=== PATIENT | female | born 1950 | race Caucasian/White ===

== ENCOUNTER → 2024-04-25 18:41 | Outpatient (REF) | payer MEDICARE, SELFPAY | LOC: WDC 18:41 | PROVIDERS: ATTENDING PHYSICIAN Internal Medicine; FAMILY PHYSICIAN Internal Medicine | DX: Z12.31 Encounter for screening mammogram for malignant neoplasm of breast (principal) | CPT/HCPCS: 77063; 77067 ==

== ENCOUNTER → 2024-05-03 11:18 | Outpatient (REF) | payer MEDICARE, SELFPAY ==
[2024-05-03 12:45] LABS: % Basophils 0.8 % (0-2); % Immature Granulocytes 0.2 % (0-0.5); % Lymphocytes 23.2 % (20.5-51.1); % Monocytes 10.7 % (1.7-9.3); % Neutrophils 62.1 % (42.2-75.2); Absolute Eosinophils 0.2 10^3/uL (0-0.7); Absolute Lymphocytes 1.2 10^3/uL (1.2-3.4); Absolute Monocytes 0.6 10^3/uL (0.1-0.6); Absolute Neutrophils 3.3 10^3/uL (1.4-6.5); Hematocrit 38.1 % (37.0-47.0); Hemoglobin 12.9 g/dL (12.0-16.0); Mean Corp Hgb Conc. 33.9 g/dL (33.0-37.0); Mean Corpuscular Volume 97.4 fL (81.0-99.0); Mean Platelet Volume 10.2 fL (7.4-10.4); Nucleated Red Blood Cells % 0 %; Platelet Count 207 10^3/uL (130-400); Red Blood Cell Count 3.91 10^6/uL (4.20-5.40); Red Cell Dist. Width 13.2 % (11.5-14.5); White Blood Cell Count 5.3 10^3/uL (4.8-10.8)
[2024-05-03 13:33] LABS: ALT (SGPT) 27 U/L (0-35); AST (SGOT) 42 U/L (14-36); Albumin 4.5 g/dl (3.5-5.0); Alkaline Phosphatase 64 U/L (38-126); Blood Urea Nitrogen 28 mg/dl (7-17); Calcium 9.9 mg/dl (8.4-10.2); Carbon Dioxide 26 mmol/L (22-30); Chloride 104 mmol/L (98-107); Glucose 100 mg/dl (70-99); Potassium 4.8 mmol/L (3.5-5.1); Sodium 139 mmol/L (135-145); Total Bilirubin 0.8 mg/dl (0.2-1.3); Total Cholesterol 289 mg/dl (50-199); Total Protein 7.2 g/dl (6.3-8.2); Triglyceride 77 mg/dl (10-149); Very Low Density Lipoprotein 15 mg/dl (0-30); eGFR 43.69
[2024-05-03 14:20] LABS: HDL Cholesterol 127 mg/dl; LDL Cholesterol, Calculated 147 mg/dl
== END ==
LOC: REG 11:18
PROVIDERS: ATTENDING PHYSICIAN Internal Medicine; REFERRING PHYSICIAN Specialist
DX: Z00.00 Encounter for general adult medical examination without abnormal findings (principal); R53.83 Other fatigue; E78.5 Hyperlipidemia, unspecified; C64.1 Malignant neoplasm of right kidney, except renal pelvis
CPT/HCPCS: 36415; 74018; 80053; 80061; 84443; 85025

== ENCOUNTER 2024-08-09 17:15 | Emergency (ER) | payer MEDICARE, SELFPAY ==
[2024-08-09 17:17] VITALS: BP 118/85
--- NOTE | 2024-08-09 17:22 | ED.PDOC.TRB ---
ED Provider Triage
-
Patient seen by provider in Triage?: Seen in Triage
Attestation: A medical screening examination has been initiated by a qualified medical provider. Based on the assessment performed at this time, it has been determined that an emergent medical condition may exist and the patient has been informed
that further medical evaluation and possible additional diagnostic testing may be needed.
HPI: 74-year-old female presents for evaluation of persistent nausea, vomiting, and diarrhea for the past 5 days. Initial onset of symptoms was also accompanied by nasal congestion and dry cough. No fevers. Denies any abdominal pain. No
suspicious food intake or recent international travel. No ill contacts
GENERAL: Alert , in no apparent distress
EYE: No visual abnormalities.
NECK: Trachea midline
ENT: No visible abnormalities.
LUNGS: No acute respiratory distress
NEUROLOGICAL: Alert and oriented
SKIN: Skin intact. No visible changes.
MUSCULOSKELETAL: Moving extremities normally
PSYCH: Normal and appropriate interaction.
Assessment: Likely viral syndrome, will check COVID-19 and labs due to persistence of the vomiting. Patient denies nausea at this time. She has no pain to suggest there is a need for a CT
This is a medical evaluation conducted in person to initiate diagnostic evaluation and provide initial therapeutics. Please see further documentation by the treating clinician.
[2024-08-09 17:35] LABS: % Basophils 0.5 % (0-2); % Eosinophils 2.2 % (0-6); % Immature Granulocytes 0.5 % (0-0.5); % Lymphocytes 24.2 % (20.5-51.1); % Monocytes 12.5 % (1.7-9.3); % Neutrophils 60.1 % (42.2-75.2); Absolute Eosinophils 0.1 10^3/uL (0-0.7); Absolute Lymphocytes 1.4 10^3/uL (1.2-3.4); Absolute Monocytes 0.7 10^3/uL (0.1-0.6); Absolute Neutrophils 3.5 10^3/uL (1.4-6.5); Hematocrit 37.4 % (37.0-47.0); Hemoglobin 13.3 g/dL (12.0-16.0); Mean Corp Hgb Conc. 35.6 g/dL (33.0-37.0); Mean Corpuscular Hgb 33.3 pg (27.0-31.0); Mean Corpuscular Volume 93.7 fL (81.0-99.0); Mean Platelet Volume 9.6 fL (7.4-10.4); Nucleated Red Blood Cells % 0 %; Platelet Count 202 10^3/uL (130-400); Red Blood Cell Count 3.99 10^6/uL (4.20-5.40); Red Cell Dist. Width 12.5 % (11.5-14.5); White Blood Cell Count 5.9 10^3/uL (4.8-10.8)
[2024-08-09 17:45] LABS: ALT (SGPT) 116 U/L (0-35); AST (SGOT) 180 U/L (14-36); Albumin 4.6 g/dl (3.5-5.0); Alkaline Phosphatase 70 U/L (38-126); Blood Urea Nitrogen 49 mg/dl (7-17); Calcium 10.1 mg/dl (8.4-10.2); Carbon Dioxide 18 mmol/L (22-30); Chloride 98 mmol/L (98-107); Glucose 123 mg/dl (70-99); Potassium 4.8 mmol/L (3.5-5.1); Sodium 135 mmol/L (135-145); Total Bilirubin 0.9 mg/dl (0.2-1.3); Total Protein 7.2 g/dl (6.3-8.2); eGFR 29.57
[2024-08-09 17:46] LABS: Lipase 692 U/L (23-300)
[2024-08-09 18:12] LABS: COVID-19 Antigen Positive (Negative)
--- NOTE | 2024-08-09 18:17 | ED.GENMED ---
History of Present Illness
General
Chief Complaint: Abdominal Symptoms
Source: patient
Time Seen by Provider: 08/09/24 18:02
History of Present Illness
History of Present Illness:
74yoF with a history of hypertension, GERD, and renal cell carcinoma s/p R nephrectomy currently in remission presenting for evaluation of flu-like symptoms x 6 days. Patient reports developing URI symptoms last week. She started with malaise,
cough, and low-grade fevers up to 99. The cough and fevers have since resolved. She continues to have generalized weakness. She started to have vomiting and diarrhea this afternoon. She had 2-3 episodes of vomiting and 2 episodes of diarrhea
today. Patient denies any chest pain, shortness of breath, abdominal pain, rashes. No known sick contacts or recent travel.
Phy Exam
Physical Exam
Physical Exam:
Appears fatigued, non-toxic
General Physical Exam
General Presentation: well appearing and no apparent distress
General age: appears stated age
General Skin: warm and dry
General Habitus: normal
General Mental: alert
ENT Exam
ENT Exam: pharynx normal and normocephalic
Cardiovascular Exam
Cardiovascular Exam: regular rate/rhythm
Pulmonary Exam
Pulmonary Exam: lungs clear, no respiratory distress, no crackles and no wheezing
Gastrointestinal Exam
Gastrointestinal Exam: non tender, soft and non distended
[place] Coma Scale
Eye Opening: Spontaneous
Verbal Response: Oriented
Motor Response: Obeys Commands
GCS Total Score: 15
Skin Exam
Skin Exam: normal color and warm/dry
Psychiatric Exam
Psychiatric Exam: normal mood/affect
Course
Orders/Labs/Results
Orders:
Orders
08/09/24 17:26
COVID-19 Antigen Urgent
Source: Nasal Swab
Complete Blood Count/With Diff Urgent
Comprehensive Metabolic Panel Urgent
Lipase Urgent
08/09/24 17:47
US Abdomen Complete/Upper Urgent
Comment:
Reason For Exam: N/V/D, transaminitis
08/09/24 18:15
0.9% Sodium Chloride 1000 ml [Nss] 1,000 ml IV BOLUS
CR Chest - 2 Views Urgent
Comment:
Reason For Exam: Weakness
08/09/24 18:16
Electrocardiogram (*1) Urgent
Reason for Study: Fatigue / Weakness
EKG- Treatment ONCE
08/09/24 18:25
Troponin I Urgent
Influenza A+B Rapid Molecular Urgent
SAMI Source: Nasal Swab
Specimen Description:
08/09/24 20:15
Urinalysis Reflex To Culture Urgent
Date Specimen was Collected: 08/09/24
Time Specimen was Collected: 20:13
Urine Microscopic Reflex Cult Urgent
Abnormal Lab Results
08/09/24 08/09/24
17:26 20:15
RBC 3.99 L 10^6/uL
(4.20-5.40)
MCH 33.3 H pg
(27.0-31.0)
Absolute Monos (auto) 0.7 H 10^3/uL
(0.1-0.6)
Monocytes % 12.5 H %
(1.7-9.3)
Carbon Dioxide 18 L mmol/L
(22-30)
BUN 49 H mg/dl
(7-17)
Creatinine 1.8 H mg/dL
(0.6-1.0)
Glucose 123 H mg/dl
(70-99)
AST 180 H U/L
(14-36)
ALT 116 H U/L
(0-35)
Lipase 692 H U/L
(23-300)
Urine Ketones Trace A
(Negative)
Leukocyte Esterase Rfl Trace A
(Negative)
Urine Bacteria (Reflex) Few A
(Negative)
SARS-CoV-2 Antigen Positive A
(Negative)
08/09/24 17:26
08/09/24 17:26
Vital Signs
Initial and Last Documented VS:
Initial Vital Signs
Temp Pulse Resp BP Pulse Ox
97.6 F 71 20 118/85 100
08/09/24 17:17 08/09/24 17:17 08/09/24 17:17 08/09/24 17:17 08/09/24 17:17
Last Documented Vital Signs
Temp Pulse Resp BP Pulse Ox
97.6 F 76 14 157/112 100
08/09/24 17:17 08/09/24 21:00 08/09/24 21:00 08/09/24 21:00 08/09/24 21:00
MDM/Problems Addressed
Differential Diagnosis Includes:
74yoF here with flu-like symptoms x 6 days. Main symptom currently is generalized weakness. C/o vomiting and diarrhea that started today. She is afebrile and hemodynamically stable. She appears fatigued but is non-toxic. She denies any abdominal
pain and abdominal exam is benign. Differential diagnosis includes but is not limited to: COVID, influenza, other viral illness, dehydration, LISA
Initial ED plan: Abdominal labs obtained in triage. COVID test is positive. Lipase is elevated at 692. Unclear significance as she has no epigastric tenderness. Mild transaminitis also noted with AST 180 and ALT 42 which may be 2/2 viral illness.
Creatinine 1.8, up from baseline of 1.3-1.5. Will check EKG, troponin, UA, CXR, and abdominal ultrasound. IV fluid bolus.
*EKG
Interpreted by ED Provider?: Yes
EKG Intrepretation Date: 08/09/24
Heart Rate: 73
Rate: normal
Rhythm: sinus
[place]: normal axis
Interval: normal interval
QRS Pattern: normal QRS
Ischemia: non-specific ST changes
*Critical Care Note
Total Time (30-74mins, 75-104mins- exclusive of procedures): Not Applicable
Update Note
Update Note:
EKG shows NSR with nonspecific changes. Troponin within normal limits. Chest x-ray is clear without infiltrates. Abdominal ultrasound shows mild dilatation of the common bile duct. Pancreas appears normal. Patient has no abdominal pain and
bilirubin is normal at 0.9. Low clinical suspicion for choledocholithiasis or cholangitis. Suspect transaminitis is 2/2 COVID infection. Patient continues to deny abdominal pain on reassessment and has had no episodes of vomiting here. No
episodes of hypoxia during ED stay. No indication for hospitalization. She was advised to follow-up closely with her PCP and gastroenterology including repeat blood work next week. Strict ED return precautions discussed including abdominal pain,
fevers, jaundice. She expressed understanding and is agreeable to plan. She was discharged in stable condition.
ED Attending Note
-
Portions of this chart may have been created with voice recognition software.� Occasional wrong word or��sound alike� substitutions may have occurred due to the inherent limitations of voice recognition software.
Discharge Plan
Departure
Patient Disposition: Home (Routine Discharge)
Date of Disposition: 08/09/24
Time of Disposition: 21:08
Patient with high blood pressure during this ER visit?: Yes
Discharge Problem:
COVID-19, Transaminitis, Elevated lipase
Instructions: COVID-19 ED
Prescriptions:
No Action
carvedilol 12.5 MG tablet
12.5 mg PO DAILY
phenazopyridine 200 MG tablet
200 mg PO BID PRN (Reason: pressure)
Patient Comments:
has not taken in 3 weeks per pt
amlodipine [Norvasc] 2.5 MG tablet
2.5 mg PO DAILY
acetaminophen [Tylenol Extra Strength] 500 MG tablet
1,000 mg PO Q6HPRN PRN (Reason: pain)
losartan-hydrochlorothiazide 1 TAB tablet
1 tab PO DAILY
calcium carbonate [Antacid (calcium carbonate)] 1 TABLET tablet,chewable
1 tab PO PRN PRN (Reason: reflux)
ibuprofen 200 MG tablet
200 mg PO Q4HPRN PRN (Reason: pain)
escitalopram oxalate 10 MG tablet
10 mg PO DAILY
Restasis Multidose
1 drp BOTH EYES BID
cephalexin 500 MG capsule
500 mg PO BID Qty: 14 0RF
Referrals:
Teri Shirley MD [Family Provider] -
Nicky Overton DO [Active] -
Activity Restrictions/Additional Instructions:
Drink plenty of fluids and rest.
Please follow-up with your family doctor and gastroenterology. You should have repeat blood work done in 1-2 weeks to monitor your liver and pancreas enzymes.
Return to the ER with any worsening symptoms, fevers, abdominal pain, or yellowing of your skin or eyes.
Interventions
Interventions:
*Risk Screen - Suicide Last Done: 08/09/24 17:17
*General Assessment Last Done: 08/09/24 17:17
*Neglect/Abuse Screening Last Done: 08/09/24 17:17
ED- Fall Risk Assessment Last Done: 08/09/24 18:28
*ED COVID-19 Vaccine History Last Done: 08/09/24 18:28
*Nursing Disposition Last Done: 08/09/24 21:26
FP-[id number]-[id number] Assessment Last Done: 08/09/24 18:29
Discharge Date and Time
Discharge Date/Time: 08/09/24 21:27
Print Language: ROMANIAN
[2024-08-09] MEDS: NSS 1000 IV (18:27)
[2024-08-09 18:28] VITALS: BMI 23.4
[2024-08-09 18:31] VITALS: BP 122/96
[2024-08-09 19:06] LABS: Troponin I < 0.012 ng/ml
[2024-08-09 20:14] VITALS: BP 148/102
[2024-08-09 20:41] LABS: Urine Albumin Negative (Neg - Trace); Urine Bilirubin Negative (Negative); Urine Character Clear (Clear); Urine Color Yellow; Urine Glucose Negative (Negative); Urine Ketone Trace (Negative); Urine Leukocyte Trace (Negative); Urine Nitrite Negative (Negative); Urine Occult Blood Negative (Negative); Urine Urobilinogen Negative (Neg - 1+)
[2024-08-09 21:00] VITALS: BP 157/112
[2024-08-09 21:07] LABS: Urine Bacteria Few (Negative); Urine Squamous Cell >30 /LPF (Few)
== END 2024-08-09 21:27 | disposition home or self-care (01) ==
LOC: EMR 17:15
PROVIDERS: Physician Assistant; EMERGENCY PHYSICIAN Emergency Medicine; FAMILY PHYSICIAN Internal Medicine
DX: U07.1 COVID-19 (principal); R74.01 Elevation of levels of liver transaminase levels; R79.89 Other specified abnormal findings of blood chemistry; I10 Essential (primary) hypertension; K21.9 Gastro-esophageal reflux disease without esophagitis; Z85.528 Personal history of other malignant neoplasm of kidney; Z90.5 Acquired absence of kidney
CPT/HCPCS: 96360; 99284; 71046; 76700; 80053; 81003; 81015; 83690; 84484; 85025; 87502; 87811; 93005

== ENCOUNTER → 2024-08-17 10:25 | Outpatient (REF) | payer MEDICARE, SELFPAY ==
[2024-08-17 11:43] LABS: ALT (SGPT) 361 U/L (0-35); AST (SGOT) 261 U/L (14-36); Albumin 4.5 g/dl (3.5-5.0); Alkaline Phosphatase 80 U/L (38-126); Blood Urea Nitrogen 23 mg/dl (7-17); Calcium 10.2 mg/dl (8.4-10.2); Carbon Dioxide 24 mmol/L (22-30); Chloride 99 mmol/L (98-107); Glucose 104 mg/dl (70-99); Potassium 4.8 mmol/L (3.5-5.1); Sodium 139 mmol/L (135-145); Total Bilirubin 0.6 mg/dl (0.2-1.3); Total Protein 7.2 g/dl (6.3-8.2); eGFR 39.97
== END ==
LOC: REG 10:25
PROVIDERS: ATTENDING PHYSICIAN Hospitalist; REFERRING PHYSICIAN Internal Medicine
DX: N17.9 Acute kidney failure, unspecified (principal); R74.8 Abnormal levels of other serum enzymes
CPT/HCPCS: 36415; 80053

== ENCOUNTER → 2024-09-29 10:09 | Outpatient (REF) | payer MEDICARE, SELFPAY ==
[2024-09-29 11:32] LABS: ALT (SGPT) 21 U/L (0-35); AST (SGOT) 36 U/L (14-36); Albumin 4.7 g/dl (3.5-5.0); Alkaline Phosphatase 50 U/L (38-126); Blood Urea Nitrogen 22 mg/dl (7-17); Calcium 10.2 mg/dl (8.4-10.2); Carbon Dioxide 22 mmol/L (22-30); Chloride 103 mmol/L (98-107); Glucose 95 mg/dl (70-99); Potassium 4.4 mmol/L (3.5-5.1); Sodium 140 mmol/L (135-145); Total Bilirubin 0.7 mg/dl (0.2-1.3); Total Protein 7.3 g/dl (6.3-8.2); eGFR 43.69
== END ==
LOC: REG 10:09
PROVIDERS: ATTENDING PHYSICIAN Hospitalist
DX: R74.8 Abnormal levels of other serum enzymes (principal)
CPT/HCPCS: 36415; 80053

== ENCOUNTER → 2024-11-21 06:15 | Day surgery (SDC) | payer MEDICARE, SELFPAY | LOC: GI 06:15 | PROVIDERS: ATTENDING PHYSICIAN Internal Medicine Gastroenterology | DX: Z12.11 Encounter for screening for malignant neoplasm of colon (principal); D12.2 Benign neoplasm of ascending colon; K57.30 Diverticulosis of large intestine without perforation or abscess without bleeding; K64.8 Other hemorrhoids; Z86.0100 Personal history of colon polyps, unspecified | CPT/HCPCS: 45380; 88305 ==

== ENCOUNTER → 2025-01-17 13:53 | Outpatient (REF) | payer MEDICARE, SELFPAY | LOC: RAD 13:53 | PROVIDERS: ATTENDING PHYSICIAN Physical Medicine & Rehabilitation; FAMILY PHYSICIAN Internal Medicine | DX: M47.812 Spondylosis without myelopathy or radiculopathy, cervical region (principal) | CPT/HCPCS: 72040 ==

== ENCOUNTER → 2025-02-03 13:32 | Outpatient (REF) | payer MEDICARE, SELFPAY | LOC: RCS 13:32 | PROVIDERS: ATTENDING PHYSICIAN Physical Medicine & Rehabilitation; FAMILY PHYSICIAN Internal Medicine | DX: Z01.818 Encounter for other preprocedural examination (principal) | CPT/HCPCS: 93005 ==

== ENCOUNTER → 2025-05-05 09:27 | Outpatient (REF) | payer MEDICARE, SELFPAY ==
[2025-05-05 09:47] LABS: Hematocrit 43.5 % (37.0-47.0); Mean Corp Hgb Conc. 34.5 g/dL (33.0-37.0); Mean Corpuscular Hgb 33.1 pg (27.0-31.0); Mean Platelet Volume 9.6 fL (7.4-10.4); Platelet Count 159 10^3/uL (130-400); Red Blood Cell Count 4.53 10^6/uL (4.20-5.40); Red Cell Dist. Width 12.9 % (11.5-14.5); White Blood Cell Count 4.1 10^3/uL (4.8-10.8)
[2025-05-05 13:52] LABS: ALT (SGPT) 65 U/L (0-35); AST (SGOT) 115 U/L (14-36); Albumin 4.9 g/dl (3.5-5.0); Alkaline Phosphatase 60 U/L (38-126); Blood Urea Nitrogen 17 mg/dl (7-17); Calcium 9.7 mg/dl (8.4-10.2); Carbon Dioxide 22 mmol/L (22-30); Chloride 106 mmol/L (98-107); Glucose 108 mg/dl (70-99); Potassium 4.6 mmol/L (3.5-5.1); Sodium 140 mmol/L (135-145); Total Bilirubin 0.5 mg/dl (0.2-1.3); Total Protein 7.8 g/dl (6.3-8.2); eGFR 43.42
== END ==
LOC: RAD 09:27
PROVIDERS: ATTENDING PHYSICIAN Specialist
DX: C64.1 Malignant neoplasm of right kidney, except renal pelvis (principal)
CPT/HCPCS: 36415; 71046; 80053; 85027

== ENCOUNTER → 2025-05-12 12:20 | Outpatient (REF) | payer MEDICARE, SELFPAY | LOC: RAD 12:20 | PROVIDERS: ATTENDING PHYSICIAN Specialist; FAMILY PHYSICIAN Internal Medicine | DX: C64.1 Malignant neoplasm of right kidney, except renal pelvis (principal) | CPT/HCPCS: 74160; Q9967 ==